=== PATIENT | female | born 1930 | race Caucasian/White ===

== ENCOUNTER → 2016-11-30 | Outpatient (CLI) | payer MEDICARE, OTHER ==
[2016-11-30] VITALS (9 sets, daily range): BP systolic 106–166; BP diastolic 37–85
[~2016-11-30] VITALS: Ht 154.9 cm; Wt 63.5 kg
[~2016-11-30] MED LIST: ALPR0.254 PO; ASPI81TA9 PO; BACITRACIN 50,000 UNIT in IV NORMAL SALINE 250ML 250 ML IRR ONE; BUSP10TA PO; BUSP5TAB PO; CALC600T11 PO; CARB25DR OP; CEFAZOLIN 1GM IVPB FOR OMNI 50 ML IV ONE; CEFAZOLIN SODIUM 1 GM in IV NORMAL SALINE 50ML 50 ML IV ONE; CLON0.5T PO; DOCU100C5 PO; DOCU250C PO; DONE10TA34 PO; ESTR1TAB15 PO; FENTANYL PF 250 MCG/5 ML VIAL. IV ONE; FENTANYL PF 250 MCG/5 ML VIAL. ONE; GABA-585 PO; GLUC1CAP57 PO; GLYC1SUP23 RC; HYDR25TA9 PO; LEVO112T4 PO; LEVO125T5 PO; LIDOCAINE 2%/EPI 1:100,000 20 ML VIAL. IJ ONE; LIDOCAINE 2%/EPI 1:100,000 20 ML VIAL. ONE; LISI-334 PO; LISI40TA PO; MEMA28CA PO; MIDAZOLAM HCL/PF 5 MG/5 ML VIAL IV ONE; MIDAZOLAM HCL/PF 5 MG/5 ML VIAL ONE; MULT-245 PO; NO ANTICOAGULANT THERAPY. MC PRN; OXYB5TAB PO; OXYB5TAB7 PO; POLY17PO3 PO; PRAM28CR2 TP; SERT25TA PO; TRAZ50TA15 PO; VERA180C2 PO
[2016-11-30 07:16] LABS: HEMATOCRIT 38.8 % (36.0-47.0); HEMOGLOBIN 12.3 g/dL (12.0-15.5); RED BLOOD COUNT 4.19 x10^6/uL (3.50-5.40); RED CELL DISTRIBUTION WIDTH 15.8 % (11.5-14.5)
[2016-11-30 07:26] LABS: PROTHROMBIN TIME PATIENT 12.7 SEC (11.7-14.0)
[2016-11-30 07:27] LABS: CALCIUM 9.2 mg/dL (8.5-10.1); CREATININE 1.2 mg/dL (0.6-1.0); GFR 42.6
--- NOTE | 2016-11-30 09:45 | CARD ---
APPROVED REPORT HISTORY The Patient is a 86 year-old female with a history of ischemic CMP INDICATIONS Elective replacement indicator for ICD IMPLANTED DEVICES [employer] ICD - Generator Model Itrevia 7DR-T DF1, SN: [id number] EXPLANTED DEVICES Med[employer]onic ICD - Generator Model [id number], SN: [id number] PROCEDURE After explaining the risks, benefits, and alternative options, informed consent was obtained from the patient. The patient was brought to the cardiac catheterization lab and the left chest and shoulder were prepp ed and draped in the usual fashion. During this case, Fluoroscopy and no contrast were used for imaging. The left infraclavicular fossa was infiltrated with 28ml of 2% lidocaine solution for subcutaneous an esthesia. A 15 blade was used to make a horizontal incision and using cautery and blunt dissection th e previously placed generator pocket was opened. There was more than usual amount of scar tissue in t he pocket. The previuos generator was then removed, the leads were inspected and tested and found to be well functioning. The leads were then attached to the new generator and the pocket was then closed in three layers. COMPLICATIONS None FINDINGS At case completion: RA lead: Medtronic [id number] - Threshold 1.4 @ 0.4 ms. P amp 1.2, Imp: 713 ohms. RV lead: Med[employer]onic [id number] - Threshold 1.4@0.4ms, R 8.1, Imp: 430 CONCLUSION Successful generator change for SHEY.
== END | disposition home or self-care (01) ==
LOC: CCL 06:14
PROVIDERS: ATTEND Internal Medicine Cardiovascular Disease
DX: Z45.02 Encounter for adjustment and management of automatic implantable cardiac defibrillator (principal); I10 Essential (primary) hypertension; E78.00 Pure hypercholesterolemia, unspecified; E03.9 Hypothyroidism, unspecified; F41.9 Anxiety disorder, unspecified; Z90.710 Acquired absence of both cervix and uterus; Z79.01 Long term (current) use of anticoagulants
CPT/HCPCS: 33263; 36415; 80048; 85027; 85610; 85730; C1721; J0690; J2250; J3010; J3490; J7050; J7030